=== PATIENT | female | born 1980 | race Caucasian/White ===

== ENCOUNTER 2018-06-14 06:00 | Inpatient (IN) | payer BC ==
[~2018-06-14 06:00] MED LIST: Butorphanol Tartrate 1 MG/ML VIAL SLOW IVP PRN; Carboprost 250 MCG/ML AMP IM PRN; Diphenoxylate HCl/Atropine Tablet PO PRN; Docusate 100 MG CAP PO PRN; HYDROcodone/Acetaminophen 5/325 mg Tablet PO PRN; Ibuprofen 800 MG TAB PO PRN; Lidocaine 1% (PF) 30 ML VIAL SC PRN; Misoprostol 200 MCG TAB PR PRN; NS / Oxytocin 40 units/1000ml 1,000 ML IV PRN; NS w/ Oxytocin 10 units 500 ML IV SCH; Ondansetron PF 4 MG/2 ML Vial IVP PRN; Promethazine HCl 25 MG/ML VIAL IM PRN
[2018-06-15] MEDS: NS w/ Oxytocin 10 units 500 ML IV SCH ×2 (07:42→10:43)
[2018-06-15 07:54] LABS: Mean Corpuscular HGB CONC 34.2 g/dL (32.0-36.0); Mean Corpuscular Hemoglobin 29.9 pg (27.0-31.0); Mean Corpuscular Volume 87.4 fL (78.0-98.0); Mean Platelet Volume 7.7 fL (7.4-10.4); Platelet Count 379 thou/uL (130-400); RBC Distribution Width 13.2 % (11.5-14.5); Red Blood Cell (RBC) Count 3.67 mill/uL (4.20-5.40); White Blood Cell (WBC) Count 12.9 thou/uL (4.8-10.8)
[2018-06-15 08:29] VITALS: BMI 29.2
[2018-06-15 08:38] LABS: HBSAg Index 0.24 S/CO (0-0.99); Hep B Surf Ag Non-Reactive S/CO (NonReactive); Syphilis Antibody Nonreactive (Nonreactive); Syphilis Antibody Index 0.02 S/CO (<1.00 Non-Reactive)
[2018-06-15] MEDS: Misoprostol 100 MCG TAB VAG SCH ×4 (10:41→19:10)
--- NOTE | 2018-06-15 15:33 | PDOC.OPDEL ---
OB Operative/Delivery Note Delivery Dr/Surgeon: Adolph Carey Assist: none Pre-Delivery Diagnosis: active labor, other (Polyhydramnios) Weeks gestation: 39 Anesthesia: none - Findings A Sex: female - 1 min: 8 - 5 min: 9 - Additional Findings/Plan Placenta delivered: spontaneous (3 minutes after baby; Baby at 1523, placenta at around 1326) Repaired Obstetrical Laceration: none Estimated blood loss: 150 Compilations/Other Findings: QBL pending No NC 3vc, Alonzo maneuver for placenta All counts correct Also has handwritten progress note in chart Post delivery plan: routine recovery
[2018-06-15] MEDS ORDERED: Measles/Mumps/Rubella 10 MCG/0.5 ML VIAL SC ONE (15:34)
[2018-06-15] MEDS ORDERED: Adacel (T-DAP) 0.5 ML SYRINGE IM ONE (15:34)
[2018-06-15] MEDS ORDERED: Milk Of Magnesia 30 ML UDCUP PO PRN (15:34)
[2018-06-15] MEDS ORDERED: Varicella virus, LIVE 0.5 ML VIAL SC ONE (15:34)
[2018-06-15] MEDS ORDERED: Preparation H Ointment 28 GM TUBE PR PRN (15:34)
[2018-06-15] MEDS ORDERED: Bisacodyl 10 MG SUPP PR PRN (15:34)
[2018-06-15] MEDS ORDERED: Benzocaine/Menthol 20-0.5% 60 ML CAN TOP PRN (15:34)
[2018-06-15] MEDS ORDERED: Lanolin Ointment 7 GM TUBE TOP PRN (15:34)
[2018-06-15] MEDS ORDERED: Acetaminophen/Codeine 30-300mg Tablet PO PRN ×2 (15:34)
[2018-06-15] MEDS ORDERED: diphenhydrAMINE 25 MG CAP PO PRN (15:34)
[2018-06-15] MEDS ORDERED: NS / Oxytocin 40 units/1000ml 1,000 ML IV SCH (15:45)
--- NOTE | 2018-06-15 15:46 | PDOC.LDHP ---
Labor and Delivery H&P Chief complaint: scheduled induction HPI: 38 y/o at 39 and 3/7 weeks for medical induction for polyhydramnios. Due date: 06/19/18 Grav: 5 Para: 4 Current complications: other (polyhydramnios) Current medications: pre- vitamins Previous surgical history: none Allergies/Adverse Reactions: Allergies Allergy/AdvReac Type Severity Reaction Status Date / Time No Known Allergies Allergy Verified 06/15/18 07:58 - Physical Exam Vital signs reviewed and normal: yes General: NAD Heart: RRR Lungs: CTAB Abdomen: NTTP Extremeties: no edema FHT: category 1 - Assessment L&D Assessment: medically indicated induction - Plan Plan: admit to L&D, other (Term medical induction of labor with pitocin.)
[2018-06-15] MEDS: Ferrous Sulfate 325 MG TAB PO SCH (19:09)
[2018-06-15] MEDS ORDERED: Docusate Calcium (SURFAK) 240 MG CAP PO SCH (21:00)
[2018-06-16] MEDS: Ibuprofen 800 MG TAB PO SCH ×3 (00:35→16:25)
[2018-06-16 05:45] LABS: Hemoglobin 9.6 g/dL (12.0-16.0); Mean Corpuscular HGB CONC 33.5 g/dL (32.0-36.0); Mean Corpuscular Hemoglobin 29.5 pg (27.0-31.0); Mean Corpuscular Volume 88.1 fL (78.0-98.0); Mean Platelet Volume 7.4 fL (7.4-10.4); Platelet Count 324 thou/uL (130-400); RBC Distribution Width 13.1 % (11.5-14.5); Red Blood Cell (RBC) Count 3.24 mill/uL (4.20-5.40); White Blood Cell (WBC) Count 14.2 thou/uL (4.8-10.8)
--- NOTE | 2018-06-16 06:01 | PDOC.PP ---
Post Progress Note Post Day #: 1 Subjective: Doing well PO intake tolerated: yes Flatus: yes Ambulation: yes Vital Signs (12 hours) Temp Pulse Resp BP Pulse Ox 06/16/18 04:15 98.9 F 66 18 99/54 L 06/16/18 00:35 98.9 F 64 18 107/54 L 06/15/18 21:40 98.2 F 55 L 16 100/61 98 06/15/18 20:27 98.0 F 61 18 100/51 L 06/15/18 19:40 97 Weight Weight 165 lb - Physical Examination Cardiovascular: no m/r/g Respiratory: clear to auscultation bilaterally Abdominal: + bowel sounds, lochia Neurological: no gross focal deficits Psychiatric: A&Ox3, normal affect Result Diagrams: 06/16/18 05:29 Additional Labs: Post Labs Blood Type A POSITIVE 06/15/18 07:25 Hep Bs Antigen Non-Reactive S/CO (NonReactive) 06/15/18 07:25 (1) Vaginal delivery Code(s): O80 - ENCOUNTER FOR FULL-TERM UNCOMPLICATED DELIVERY Status: Acute - Assessment/Plan PPD1...doing well. Multip, cleared for discharge today. F/U with dr sharp
[2018-06-16] MEDS ORDERED: Prenatal Vitamin 1 TAB PO SCH (09:00)
[2018-06-16] MEDS: Ferrous Sulfate 325 MG TAB PO SCH ×2 (09:16→16:25)
[2018-06-16 12:15] VITALS: BP 91/56; TEMP 98.1
== END 2018-06-16 17:30 | disposition home or self-care (01) | DRG 807 ==
LOC: L&D 06-15 06:34 → 3SW 06-15 19:39
PROVIDERS: ADMIT Obstetrics & Gynecology; ATTEND Obstetrics & Gynecology
PROC: 3E0P7VZ Introduction of Hormone into Female Reproductive, Via Natural or Artificial Opening (ICD-10-PCS; principal; 2018-06-15)
PROC: 10E0XZZ Delivery of Products of Conception, External Approach (ICD-10-PCS; 2018-06-15)
PROC: 3E033VJ Introduction of Other Hormone into Peripheral Vein, Percutaneous Approach (ICD-10-PCS; 2018-06-15)
DX: O40.3XX0 Polyhydramnios, third trimester, not applicable or unspecified (principal); Z37.0 Single live birth; Z3A.39 39 weeks gestation of pregnancy
CPT/HCPCS: 36415; 85027; 86780; 86850; 86900; 86901; 87340; J2001